=== PATIENT | female | born 1945 | race Caucasian/White ===

== ENCOUNTER 2024-03-31 11:46 | Emergency (ER) | payer MEDICARE ==
[2024-03-31 12:10] VITALS: TEMP 97.9
--- NOTE | 2024-03-31 13:06 | CT ---
EXAMINATION TYPE: CT brain cspine wo con, CT facial bones wo con CT DLP: 1114.6 mGycm, Automated exposure control for dose reduction was used. DATE OF EXAM: 03/31/2024 12:51 PM COMPARISON: None. CLINICAL INDICATION: Female, 79 years old with history of Fall, head injury; Fall on thinners TECHNIQUE: Brain: Multiple axial CT images of the brain were obtained without IV contrast. Cspine: Axial CT images from the skull base to the inferior aspect of T2 we obtained without intraven ous contrast. Coronal and sagittal reformatted images were also reviewed. Facial: Axial imaging of the facial structures with sagittal and coronal reformats. FINDINGS: Brain: Extra-axial spaces: No abnormal extra-axial fluid collections. Ventricular system: Within normal limits Cerebral parenchyma: No acute intraparenchymal hemorrhage or mass effect. The ferreira-white junction is well differentiated. Cerebellum: Unremarkable. Mass effect: No evidence of midline shift. Intracranial vasculature: unremarkable Soft tissues: Soft tissue edema involving the right cheek. Calvarium/osseous structures: No depressed skull fracture. Postsurgical changes right temporal bone. Stimulator leads are seen in the posterior skull extending into the right temporal bone. Paranasal sinuses and mastoid air cells: Clear. Visualized orbits: The lenses are surgically removed from the globes. Cervical spine: Fracture: None. Osseous structures: Multilevel degenerative disc disease changes with endplate spurring and disc oste ophyte complex's. Fixation hardware throughout the spine at C5-C6 and C7. Hardware appears intact and in appropriate position. Vertebral alignment: Within normal limits. Spinal canal/Neural Foramina: No evidence of significant spinal canal narrowing. No evidence for sign ificant neural foraminal stenosis. Neck soft tissues: Prevertebral soft tissues are within normal limits. Other: The airway is patent. The lung apices are clear. Cardiac conduction leads partially visualized . Scattered atherosclerosis of the arterial vasculature. Atherosclerosis of the arterial vasculature. Facial: There is no evidence of fracture, subluxation, dislocation. There is soft tissue edema involv ing the right cheek without evidence of fracture.. The orbital contents are unremarkable.The temporal -mandibular joints appear symmetric. The visualized portion of the paranasal sinuses appear clear. IMPRESSION: 1. No acute intracranial process or significant change from prior. 2. Right cheek edema without evidence of fracture. 3. Nonspecific white matter changes, likely secondary to chronic small vessel ischemic disease. 4. No evidence of cervical spine fracture. 5. Mild multilevel degenerative disc disease. 6. Post surgical changes spine with hardware intact. 7. Atherosclerosis of the carotid bifurcations. 8. Postsurgical changes right temporal lobe with stimulator lead present.
--- NOTE | 2024-03-31 13:25 | XR ---
EXAMINATION TYPE: XR hand complete RT DATE OF EXAM: 03/31/2024 1:07 PM CLINICAL INDICATION: Female, 79 years old with history of Fall; COMPARISON: None TECHNIQUE: XR hand complete RT Frontal, lateral and oblique views were obtained. FINDINGS: Normal alignment of the visualized joints. No acute osseous pathology is identified. No e vidence of soft tissue swelling. Multifocal degeneration changes with joint space narrowing and osteo phyte formation. IMPRESSION: 1. No acute osseous pathology. 2. 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
--- NOTE | 2024-03-31 13:53 | ED ---
Fall HPI - General Chief Complaint: Fall Stated Complaint: Fall on thinners Time Seen by Provider: 03/31/24 12:00 Source: patient, RN notes reviewed Mode of arrival: ambulatory Limitations: no limitations - History of Present Illness Initial Comments: This is an 79-year-old female who presents to the emergency department for a fall. States that yesterday she tripped and fell in her room, hitting the front of her head on her dresser. States that she has a bruise over the right cheek just under the eye, but did not hit any other part of her head. That pain has since started to improve. She also has pain and swelling over the right hand. Taking Ibuprofen with some relief in symptoms. She is concerned because she had a retrobulbar hematoma several months ago in the right eye and wants to make sure that did not recur. Denies any pain in the eye itself or visual changes. She is on blood thinners. Denies any loss of consciousness. MD Complaint: fall - Related Data Home Medications Medication Instructions Recorded Confirmed Aspirin EC [Ecotrin Low Dose] 81 mg PO DAILY 03/31/24 03/31/24 Atorvastatin [Lipitor] 10 mg PO HS 03/31/24 03/31/24 Cetirizine HCl 10 mg PO HS PRN 03/31/24 03/31/24 Clopidogrel [Plavix] 75 mg PO DAILY 03/31/24 03/31/24 Cyanocobalamin (Vitamin B-12) 1,000 mcg PO DAILY 03/31/24 03/31/24 [Vitamin B-12] Ergocalciferol (Vitamin D2) 1,250 mcg PO Q14D 03/31/24 03/31/24 [Drisdol (50,000 Iu)] Fluticasone Nasal [place] [Flonase 1 spray EA NOSTRIL BID PRN 03/31/24 03/31/24 Nasal [place]] Furosemide [Lasix] 40 mg PO DAILY 03/31/24 03/31/24 Gabapentin [Neurontin] 300 - 600 mg PO HS 03/31/24 03/31/24 Multivit with Calcium,Iron,Min 1 tab PO DAILY 03/31/24 03/31/24 [Women's Multivitamin] Potassium Chloride ER [K-Dur 10] 10 meq PO DAILY 03/31/24 03/31/24 Sertraline [Zoloft] 100 mg PO DAILY 03/31/24 03/31/24 Sotalol [Betapace] 40 mg PO BID 03/31/24 03/31/24 amLODIPine [Norvasc] 5 mg PO DAILY 03/31/24 03/31/24 busPIRone HCl [Buspar] 5 mg PO TID PRN 03/31/24 03/31/24 Allergies Allergy/AdvReac Type Severity Reaction Status Date / Time No Known Allergies Allergy Verified 03/31/24 13:39 Review of Systems ROS Statement: Those systems with pertinent positive or pertinent negative responses have been documented in the HPI. ROS Other: All systems not noted in ROS Statement are negative. Past Medical History Past Medical History: Hypertension History of Any Multi-Drug Resistant Organisms: None Reported Past Surgical History: Heart Catheterization With Stent, Pacemaker Additional Past Surgical History / Comment(s): 5x stents. watchmen Past Psychological History: No Psychological Hx Reported Smoking Status: Never smoker Past Alcohol Use History: Rare Past Drug Use History: None Reported General Exam Limitations: no limitations General appearance: alert, in no apparent distress Head exam: Present: other (Mild ecchymosis and tenderness to the top of the right cheekbone) Eye exam: Present: PERRL, EOMI. Absent: conjunctival injection Respiratory exam: Present: normal lung sounds bilaterally. Absent: respiratory distress, wheezes, rales, rhonchi, stridor Cardiovascular Exam: Present: regular rate, normal rhythm, normal heart sounds. Absent: systolic murmur, diastolic murmur, rubs, gallop, clicks Extremities exam: Present: other (Mild swelling over the right hand. No ecchymosis or erythema. Range of motion of the middle finger somewhat limited by pain. 2+ radial pulses.) Neurological exam: Present: alert, oriented X3, CN II-XII intact Psychiatric exam: Present: normal affect, normal mood Skin exam: Present: warm, dry, intact, normal color. Absent: rash Course Vital Signs 03/31/24 03/31/24 11:50 14:17 Temperature 97.9 F Pulse Rate 72 99 Respiratory 20 18 Rate Blood Pressure 140/89 121/85 O2 Sat by Pulse 98 99 Oximetry Medical Decision Making - Medical Decision Making This is an 79-year-old female who presents to the emergency department for a fall. Was pt. sent in by a medical professional or institution? @ -No Did you speak to anyone other than the patient for history? @ -No Did you review nursing and triage notes? @ -Yes, and I agree, it is accurate with regards to the patient's symptoms. Were old charts reviewed? @ -No Differential Diagnosis? @ -Differential Diagnosis Head Injury: Contusion, hematoma, intracranial hemorrhage, skull fracture, whiplash, concussion, this is not meant to be an all-inclusive list. EKG interpreted by me (3pts min.)? @ -Not obtained X-rays interpreted by me (1pt min.)? @ -X-ray of the right hand obtained. My interpretation identifies no acute fractures. CT interpreted by me (1pt min.)? @ -Computed tomography scan of the brain and c-spine obtained. My interpretation identifies no evidence of an acute intracranial hemorrhage, skull fracture, or cervical spine fracture. CT scan of the facial bones obtained. My interpretation identifies no facial fractures. U/S interpreted by me (1pt. min.)? @ -Not obtained What testing was considered but not performed? (CT, X-rays, U/S, labs)? Why? @ -None What meds were considered but not given? Why? @ -None Did you discuss the management of the patient with other professionals? @ -No Did you reconcile home meds? @ -No Was smoking cessation discussed for >3mins.? @ -No Was critical care preformed (if so, how long)? @ -No Were there social determinants of health that impacted care today? How? (Homelessness, low income, unemployed, alcoholism, drug addiction, transportation, low edu. Level, literacy, decrease access to med. care, half-way, rehab)? @ -No Was there de-escalation of care discussed even if they declined? (Discuss DNR or withdrawal of care, Hospice)? @ -No What co-morbidities impacted this encounter? (DM, HTN, Smoking, COPD, CAD, Cancer, CVA, Hep., AIDS, mental health diagnosis, sleep apnea, morbid obesity)? @ -None Was patient admitted / discharged? @ -Discharged. CT scan of the brain/C-spine and facial bones obtained revealing no acute intracranial process. The right cheek edema is noted, as is evident on physical exam. X-ray of the right hand obtained as well revealing no acute findings. Patient declined any pain medication in the emergency department and is able to manage this on her own with [id number] analgesics. Patient discharged home in stable condition and advised to follow- up with her primary care provider. Case discussed with ED attending Dr. Duran. Return precautions reviewed in depth, the patient is instructed to return to the emergency department with any new, worsening, or concerning symptoms. Patient verbalized understanding. Undiagnosed new problem with uncertain prognosis? @ -None Drug Therapy requiring intensive monitoring for toxicity (Heparin, Nitro, Insulin, Cardizem)? @ -None Were any procedures done? @ -None Diagnosis/symptom? @ -Fall, head injury, right hand contusion Acute, or Chronic, or Acute on Chronic? @ -Acute Uncomplicated (without systemic symptoms) or Complicated (systemic symptoms)? @ -Uncomplicated Side effects of treatment? @ -None Exacerbation, Progression, or Severe Exacerbation] @ -Not applicable Poses a threat to life or bodily function? @ -No - Radiology Data Radiology results: report reviewed, image reviewed Disposition Clinical Impression: Fall, Contusion of right cheek, Swelling of right hand Disposition: HOME SELF-CARE Instructions (If sedation given, give patient instructions): Fall Prevention for Older Adults (ED) Additional Instructions: Return to the emergency department with any new, worsening, or concerning symptoms. Take Tylenol as needed for pain relief. Apply ice to the hand and elevate it when possible. Follow up with your primary care provider in 1-2 days. Is patient prescribed a controlled substance at d/c from ED?: No Referrals: Nonstaff,Physician [Primary Care Provider] - 1-2 days Time of Disposition: 13:54
[2024-03-31 14:19] VITALS: BP 121/85; PULSE 99; RESP 18
== END 2024-03-31 14:19 | disposition home or self-care (01) ==
LOC: EDBD → EC 11:46
CPT/HCPCS: 70450; 70486; 72125; 99284